=== PATIENT | female | born 1990 | race Caucasian/White ===

== ENCOUNTER 2017-01-12 15:05 | Inpatient (IN) | payer OTHER ==
[~2017-01-12] VITALS: Ht 170.2 cm; Wt 75.1 kg
[~2017-01-12 15:05] MED LIST: IBUPROFEN800 MG PO; LEVAQUIN750 MG PO; METHADONE10 MG/1 M1 PO; NAPROSYN500 MG PO; NOHOMEMEDS; PRENATAL TABLE1 EAC3 PO; PROMETHAZINE HC25 M1 PO; PYRIDIUM100 MG PO; ZOFRAN ODT4 MG PO
[2017-01-12 16:02] LABS: HEMATOCRIT 40.3 % (36.0-46.0); MEAN PLAT.VOLUME 10.1 uM^3 (9.5-12.4); PLATELET COUNT 239 K/uL (156-360); RBC DIS.WIDTH-CV 13.7 % (11.8-14.6); RBC DIS.WIDTH-SD 45.8 % (39-53); RED BLOOD COUNT 4.43 M/uL (3.80-5.20); WHITE BLOOD COUNT 21.2 K/uL (4.1-10.2)
[2017-01-12 16:11] LABS: CHLORIDE 98 mEq/L (99-109); POTASSIUM 3.6 mEq/L (3.7-5.4); SODIUM 132 mEq/L (136-147)
[2017-01-12 16:13] LABS: GLUCOSE 123 mg/dL (70-99)
[2017-01-12 16:14] LABS: ANION GAP 9 MEQ/L (2-14)
[2017-01-12 16:17] LABS: GFR ESTIMATE (CALCULATED) > 59 mL/min/
[2017-01-12 16:18] LABS: UREA NITROGEN (BUN) 11 mg/dL (9-23)
[2017-01-12 19:59] LABS: TOTAL BILIRUBIN 0.7 mg/dL (0.0-1.0)
[2017-01-12 20:00] LABS: ALKALINE PHOSPHATASE 75 IU/L (3-129)
[2017-01-12 20:02] LABS: INTER. NORMALIZED RATIO 1.5; PROTHROMBIN TIME 16.5 SEC (10.2-12.9)
[2017-01-12 20:03] LABS: DIRECT BILIRUBIN 0.3 mg/dL (0.0-0.3)
[2017-01-12 21:45] VITALS: BP 121/57
[2017-01-12 22:56] LABS: ADD MIUA? YES; BILIRUBIN NEGATIVE; BLOOD SMALL; COLOR YELLOW ((YELLOW)); GLUCOSE (STRIP) NEGATIVE; KETONES NEGATIVE; LEUKOCYTES TRACE; NITRITE NEGATIVE; PROTEIN (STRIP) NEGATIVE; SPECIFIC GRAVITY 1.045 (1.000-1.030); UROBILINOGEN 0.2 MG/DL (0.2-1.0)
[2017-01-12 23:00] LABS: BACTERIA 1+ /HPF; EPITHELIAL CELLS 2+ /HPF; MUCUS TRACE /LPF; RED BLOOD CELLS 0-5 /HPF (0-5); UCUL ADDED? YES
[2017-01-12 23:17] LABS: AMPHETAMINES QUANT VALUE 0 NG/ML; BARBITUATES QUANT VALUE 0 NG/ML; BENZODIAZEPINES QUANT VALUE 0 NG/ML; BENZODIAZEPINES, URINE SCREEN Negative (200 ng/mL); MARIJUANA QUANT VALUE 0 NG/ML; OPIATES QUANTITATIVE VALUE 0 NG/ML; PHENCYCLIDINE QUANT VALUE 0 NG/ML
[2017-01-13 03:36] VITALS: BP 135/84
[2017-01-13 07:08] LABS: ALKALINE PHOSPHATASE 70 IU/L (3-129); ANION GAP 9 MEQ/L (2-14); CHLORIDE 102 MEQ/L (99-109); GFR ESTIMATE (CALCULATED) > 59 mL/min/; GLUCOSE 108 mg/dL (70-99); MCH 29.6 PG (29.0-34.0); MCHC 32.6 G/DL (30.0-36.0); MCV 90.7 FL (83-99); MEAN PLAT.VOLUME 10.1 uM^3 (9.5-12.4); PLATELET COUNT 217 K/uL (156-360); POTASSIUM 3.7 MEQ/L (3.7-5.4); RBC DIS.WIDTH-CV 13.9 % (11.8-14.6); RBC DIS.WIDTH-SD 46.5 % (39-53); RED BLOOD COUNT 3.75 M/uL (3.80-5.20); SAMPLE HEMOLYSIS CHECK 0; SAMPLE ICTERIC CHECK 0; SAMPLE LIPEMIA CHECK 0; SODIUM 138 MEQ/L (136-147); TOTAL BILIRUBIN 0.4 MG/DL (0.0-1.0); UREA NITROGEN (BUN) 11 mg/dL (9-23); WHITE BLOOD COUNT 19.9 K/uL (4.1-10.2)
[2017-01-13 07:26] LABS: EOSINOPHIL (%) 0.2 % (0-5); IMMATURE GRANULOCYTE (%) 1.2 % (0.0-0.7); IMMATURE GRANULOCYTE COUNT 0.2 K/uL; INSTRUMENT ABS NEUTROPHIL CT 16.7 K/uL; LYMPHOCYTE COUNT 1.1 K/uL (1.0-2.8); MONOCYTE (%) 9.1 % (3-12); MONOCYTE COUNT 1.8 K/uL (0-0.8); NEUTROPHIL (%) 83.8 % (45-76); NEUTROPHIL COUNT 16.7 K/uL (1.8-6.4)
[2017-01-13 07:37] VITALS: BP 109/59
[2017-01-13 12:03] VITALS: BP 138/75
[2017-01-13 19:55] VITALS: BP 103/53
[2017-01-14] VITALS (7 sets, daily range): BP systolic 110–128; BP diastolic 57–74
[2017-01-14 06:39] LABS: HEMATOCRIT 31.2 % (36.0-46.0); MCH 30.1 PG (29.0-34.0); MCHC 32.7 G/DL (30.0-36.0); MEAN PLAT.VOLUME 10.5 uM^3 (9.5-12.4); PLATELET COUNT 200 K/uL (156-360); RBC DIS.WIDTH-CV 14.1 % (11.8-14.6); RBC DIS.WIDTH-SD 48.3 % (39-53); RED BLOOD COUNT 3.39 M/uL (3.80-5.20); WHITE BLOOD COUNT 11.1 K/uL (4.1-10.2)
[2017-01-14 07:01] LABS: ANION GAP 6 MEQ/L (2-14); CHLORIDE 105 MEQ/L (99-109); GFR ESTIMATE (CALCULATED) > 59 mL/min/; GLUCOSE 86 mg/dL (70-99); POTASSIUM 3.6 MEQ/L (3.7-5.4); SAMPLE HEMOLYSIS CHECK 0; SAMPLE ICTERIC CHECK 0; SAMPLE LIPEMIA CHECK 0; SODIUM 140 MEQ/L (136-147); UREA NITROGEN (BUN) 12 mg/dL (9-23)
[2017-01-14 12:50] LABS: INTERNAL CONTROL VALID? YES
[2017-01-15 04:01] VITALS: BP 117/59
[2017-01-15 06:15] LABS: HEMATOCRIT 32.3 % (36.0-46.0); MCH 30.1 PG (29.0-34.0); MCHC 32.8 G/DL (30.0-36.0); MCV 91.8 FL (83-99); MEAN PLAT.VOLUME 10.5 uM^3 (9.5-12.4); PLATELET COUNT 224 K/uL (156-360); RBC DIS.WIDTH-CV 14.2 % (11.8-14.6); RBC DIS.WIDTH-SD 48.1 % (39-53); RED BLOOD COUNT 3.52 M/uL (3.80-5.20); WHITE BLOOD COUNT 7.8 K/uL (4.1-10.2)
[2017-01-15 06:40] LABS: ANION GAP 8 MEQ/L (2-14); CHLORIDE 105 MEQ/L (99-109); GFR ESTIMATE (CALCULATED) > 59 mL/min/; GLUCOSE 85 mg/dL (70-99); MAGNESIUM 1.8 mg/dl (1.3-2.7); POTASSIUM 4.2 MEQ/L (3.7-5.4); SAMPLE HEMOLYSIS CHECK 0; SAMPLE ICTERIC CHECK 0; SAMPLE LIPEMIA CHECK 0; SODIUM 140 MEQ/L (136-147); UREA NITROGEN (BUN) 10 mg/dL (9-23)
[2017-01-15 07:06] VITALS: BP 127/73
[2017-01-15] MEDS ORDERED: BENZONATATE100 MG PO (10:47)
[2017-01-15] MEDS ORDERED: Robitussin DM PO (10:48)
[2017-01-15] MEDS ORDERED: CEFTIN500 MG PO (10:48)
[2017-01-15] MEDS ORDERED: ZOFRAN4 MG PO (10:48)
== END 2017-01-15 13:41 | disposition home or self-care (01) | DRG 871 ==
LOC: EME 15:05 → 5SOUTH 19:28 → EDOF 19:28 → ENRESERV 19:29 → 5SOUTH 21:27
PROVIDERS: Emergency Medicine; Hospitalist; Internal Medicine; Physician Assistant Medical
DX: A41.9 Sepsis, unspecified organism (principal); J18.9 Pneumonia, unspecified organism; N39.0 Urinary tract infection, site not specified; F11.20 Opioid dependence, uncomplicated; E87.3 Alkalosis; H66.90 Otitis media, unspecified, unspecified ear; I45.6 Pre-excitation syndrome; F17.200 Nicotine dependence, unspecified, uncomplicated; E87.6 Hypokalemia; E87.1 Hypo-osmolality and hyponatremia; R07.81 Pleurodynia
CPT/HCPCS: 71020; 71275; 80048; 80053; 80076; 80306 90; 81003; 82803; 83605; 83735; 85025; 85027; 85379; 85610; 87040; 87070; 87086; 87205; 87449; 87502; 94010; 94640; 94640 76; 94667; 94799; 99202; 99281; 99285; J0456; J0696; J1885; J2405; J7120

== ENCOUNTER 2017-05-13 16:17 | Outpatient (CLI) | payer OTHER ==
[~2017-05-13 16:17] MED LIST changes: +BENZONATATE100 MG PO; +CEFTIN500 MG PO; +Robitussin DM PO; +ZOFRAN4 MG PO
[2017-05-13 16:22] VITALS: BP 145/88
[2017-05-13 16:44] VITALS: BP 140/76
[2017-05-13 16:52] LABS: BASOPHIL (%) 0.2 % (0-1); EOSINOPHIL (%) 0.4 % (0-5); EOSINOPHIL COUNT 0.1 K/uL (0-0.3); HEMATOCRIT 37.9 % (36.0-46.0); HEMOGLOBIN 12.7 G/DL (11.9-15.5); IMMATURE GRANULOCYTE (%) 0.4 % (0.0-0.7); LYMPHOCYTE (%) 14.2 % (15-42); LYMPHOCYTE COUNT 1.8 K/uL (1.0-2.8); MCH 31.1 PG (29.0-34.0); MCHC 33.5 G/DL (30.0-36.0); MCV 92.9 FL (83-99); MONOCYTE (%) 5.3 % (3-12); MONOCYTE COUNT 0.7 K/uL (0-0.8); NEUTROPHIL (%) 79.5 % (45-76); NEUTROPHIL COUNT 10.1 K/uL (1.8-6.4); PLATELET COUNT 203 K/uL (156-360); RBC DIS.WIDTH-CV 13.3 % (11.8-14.6); RBC DIS.WIDTH-SD 45.2 % (39-53); RED BLOOD COUNT 4.08 M/uL (3.80-5.20); WHITE BLOOD COUNT 12.6 K/uL (4.1-10.2)
[2017-05-13 17:02] VITALS: BP 131/68
[2017-05-13] MEDS ORDERED: IBUPROFEN800 MG PO (18:18)
[2017-05-13 19:35] VITALS: BP 111/71
[2017-05-13 20:54] LABS: BENZODIAZEPINES, URINE SCREEN POSITIVE (200 ng/mL)
[2017-05-13 21:21] VITALS: BP 118/65
== END 2017-05-13 22:01 | disposition home or self-care (01) ==
LOC: LDRP-OP 16:17 → 2WEST 16:18
PROVIDERS: Obstetrics & Gynecology
PROC: 10D17ZZ Extraction of Products of Conception, Retained, Via Natural or Artificial Opening (ICD-10-PCS; principal; 2017-05-13)
DX: O03.4 Incomplete spontaneous abortion without complication (principal); O99.42 Diseases of the circulatory system complicating childbirth; I45.6 Pre-excitation syndrome; O41.1210 Chorioamnionitis, first trimester, not applicable or unspecified; Z3A.14 14 weeks gestation of pregnancy; Z79.891 Long term (current) use of opiate analgesic; Z87.59 Personal history of other complications of pregnancy, childbirth and the puerperium
CPT/HCPCS: 80306 90; 85025; 86850; 86900; 86901; 88305; G0378; J0131; J1170; J2250; J2405; J2765; J3010